=== PATIENT | female | born 1990 | race Caucasian/White ===

== ENCOUNTER 2019-04-29 00:36 | Inpatient (IN) ==
[2019-04-29] MEDS ORDERED: OXYTOCIN 30 UNITS/500 ML BAG IV PRN ×3 (01:33→10:21)
--- NOTE | 2019-04-29 01:41 | History & Physical Report ---
Date of Service April 29, 2019 Assessment & Plan (1) : Admit to L&D. EFM/toco. Labs. IV fluids. I discussed and risks with patient, informed consent obtained. Reviewed risk of uterine rupture (approx 1%) and possible risk of of baby/mom, risk of need for immediate surgery to attempt to repair uterus, risk of hysterectomy. She does not want an epidural. I reviewed with her that having an epidural in place may make it faster to get into OR if we need to perform a STAT , she will consider this. Since rare ctx, will start pitocin to augment labor. Anesthesiologist has been notified of and will stay in-house. History of Present Illness Chief Complaint: rupture of membranes Primary Care Provider: NO PCP 28yo @ 39 03/03 with large gush of clear fluid at 11:30pm 04/28/2019. She was not initially feeling much movement when she called in, and was directed to come straight to the hospital. movement has picked up since arrival. No vaginal bleeding. Occasional contractions. She has h/o primary low transverse for breech, Operative report is available in chart. She has been hoping to during the , and has previously signed consent. Allergies Allergy/AdvReac Type Severity Reaction Status Date / Time No Known Drug Allergies Allergy Verified 04/23/19 11:01 Home Medications Home Medications Medication Instructions Recorded Confirmed Type PNV cmb#95-ferrous fumarate-FA 1 tab PO DAILY 04/29/19 04/29/19 History [] Patient History Medical History Ovarian cyst Varicella Surgical History History of (Resolved) S/P S/P wisdom tooth extraction Family History Mother Hypertension Father Hypertension Family/Other Anemia Aunt Diabetes Multiple gestation Uncle Diabetes Sister Heart murmur Endometriosis Brother Bicuspid aortic valve Family/Other Breast cancer Social History Preferred Language: Bhutanese Beliefs That Will Affect Care: None marital status: marital status details: Arcadio Barrientos (28) [phone] Current Living Situation: Family Current Living Situation Comment: Cat- pt not changing cat litter current occupational status: employed 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 [employer] Other Information That Helps Us Care for You: No Feels Safe at Home: Yes Safety Concerns: Feels Safe At This Time Smoking Status: Never smoker Hx Alcohol Use: No Hx Substance Use: No Review of Systems All systems reviewed & are unremarkable except as noted in HPI & below Physical Exam Physical Exam: SVE 3/80/0 per RN, grossly ruptured with + nitrizine, cephalic Constitutional: WD/WN, vitals as above Respiratory: normal respiratory effort, lungs clear to auscultation no respiratory distress Cardiovascular: Rate/Rhythm: regular rate and regular rhythm Gastrointestinal (Abdomen): Inspection/Auscultation: abdomen normal to inspection Percussion/Palpation: abdomen soft; abdomen nontender Gravid. No s/s chorio or abruption. Skin: no rashes, warm and dry Psychiatric: A+Ox3, euthymic affect Results & Data Vital Signs (Past 12 Hours) Vital Signs Temp Pulse Resp BP 04/29/19 00:56 36.8 C 92 H 18 126/86 04/29/19 00:53 92 H 126/86 Monitoring External Monitor FHT Cat 1, reactive Tocodynamometer Q 7 min Coding Level of Care Code None Diagnoses Z34.90
[2019-04-29 02:07] LABS: Hematocrit (blood only) 37.4 % (37-47); Hemoglobin 12.6 g/dL (12.0-16.0); Mean Corpuscular Hemoglobin 31.4 pg (25-34); Mean Corpuscular Hgb Conc 33.7 g/dL (32-36); Mean Corpuscular Volume 93.3 fL (80-100); Mean Platelet Volume 10.4 fL (7.4-10.4); Platelet Count 202 K/uL (130-400); RDW Coefficient of Variation 12.8 % (11.5-14.5); RDW Standard Deviation 43.3 fL (36.4-46.3); Red Blood Count 4.01 M/uL (4.2-5.4)
[2019-04-29] MEDS ORDERED: OXYTOCIN 30 UNITS/500ML NSS ONE (02:15)
[2019-04-29] MEDS: LACTATED RINGER'S 1,000 ML IV PRN ×2 (02:20→05:40)
[2019-04-29] MEDS ORDERED: fentaNYL citrate 100 MCG/2 ML VIAL ONE (03:48)
[2019-04-29] MEDS ORDERED: fentaNYL 2MCG/ML ROPIV 1.25MG/ML 100 ML BAG EPI ONE (03:48)
[2019-04-29] MEDS ORDERED: BUPIVACAINE 0.25% 30 ML VIAL ONE (03:48)
[2019-04-29] MEDS ORDERED: ePHEDrine sulfate 50 MG/ML AMP ONE (03:48)
[2019-04-29] MEDS ORDERED: fentaNYL 2MCG/ML ROPIV 1.25MG/ML 100 ML BAG EPI PRN (05:11)
[2019-04-29] MEDS ORDERED: ePHEDrine sulfate 50 MG/ML AMP IV PRN (05:11)
[2019-04-29] MEDS ORDERED: NALOXONE HCL 0.4 MG/1 ML VIAL/CARP IV PRN (05:11)
[2019-04-29] MEDS ORDERED: NALOXONE HCL 1 MG in SODIUM CHLORIDE 0.9% 1000ML 1,000 ML IV PRN (05:11)
[2019-04-29] MEDS ORDERED: NALBUPHINE HCL INJ 10 MG/ML AMP IV PRN (05:11)
[2019-04-29] MEDS ORDERED: DiphenhydrAMINE HCL 50 MG/ML VIAL IV PRN (05:11)
--- NOTE | 2019-04-29 05:12 | Anesthesiology Consultation ---
Date of Service April 29, 2019 Assessment & Plan Chart Review Chart Review: Acceptable Risk for Labor Epidural Consults Requested none History Height/Weight Height: 5 ft 5 in Weight: 92.079 kg Allergies Allergy/AdvReac Type Severity Reaction Status Date / Time No Known Drug Allergies Allergy Verified 04/23/19 11:01 Medications Home Medications Medication Instructions Recorded Confirmed Last Taken PNV cmb#95-ferrous fumarate-FA 1 tab PO DAILY 04/29/19 04/29/19 04/28/19 [] Active Medications Generic Name Dose Route Start Last Admin Trade Name Freq PRN Reason Stop Dose Admin Lactated Ringer's 1,000 mls @ 125 mls/hr 04/29/19 01:33 04/29/19 03:43 Lr IV 05/01/19 01:32 999 mls/hr .Q8H PRN Infusion L&D Protocol Protocol Oxytocin 30 units in 500 mls @ 3 mls/hr 04/29/19 01:33 04/29/19 03:00 Pitocin IV 05/01/19 01:32 0.18 units/hr .Q24H PRN 3 mls/hr Labor Induction/Augmentation Titration Protocol 0.18 UNITS/HR Past Medical History Medical History Ovarian cyst Varicella Past Family History Family History Mother Hypertension Father Hypertension Family/Other Anemia Aunt Diabetes Multiple gestation Uncle Diabetes Sister Heart murmur Endometriosis Brother Bicuspid aortic valve Family/Other Breast cancer Past Surgical History Surgical History History of (Resolved) S/P S/P wisdom tooth extraction Social History Smoking Status: Never smoker Hx Alcohol Use: No Hx Substance Use: No Physical Exam Vital Signs Last Vital Signs Temp 36.7 C 04/29/19 03:00 Pulse 81 04/29/19 05:10 Resp 18 04/29/19 03:34 BP 125/68 04/29/19 05:10 Pulse Ox 96 04/29/19 05:09 Testing Laboratory Results 04/29/19 01:56
--- NOTE | 2019-04-29 07:10 | Labor Progress Brief Note ---
Date of Service April 29, 2019 Subjective Comfortable with epidural. FHT Cat 1 [place] Q 3 SVE 690/0 per RN Doing well, anticipate vaginal delivery. Results & Data Vital Signs (Past 12 Hours) Vital Signs Temp Pulse Resp BP Pulse Ox 04/29/19 07:08 80 116/70 04/29/19 07:04 85 98 04/29/19 07:00 36.4 C L 16 04/29/19 06:59 88 98 04/29/19 06:54 71 95 04/29/19 06:52 75 101/56 L 04/29/19 06:49 71 95 04/29/19 06:44 73 96 04/29/19 06:39 71 96 04/29/19 06:37 68 98/54 L 04/29/19 06:34 71 95 04/29/19 06:29 71 96 04/29/19 06:24 73 96 04/29/19 06:22 74 96/55 L 04/29/19 06:21 72 94 04/29/19 06:19 71 96 04/29/19 06:14 74 95 04/29/19 06:09 77 96 04/29/19 06:07 94 H 95/57 L 04/29/19 06:04 71 94 04/29/19 06:02 72 91/51 L 04/29/19 05:59 71 95 04/29/19 05:57 71 96/53 L 04/29/19 05:55 78 94 04/29/19 05:54 71 95 04/29/19 05:52 73 93/50 L 04/29/19 05:50 76 94 04/29/19 05:49 77 94 04/29/19 05:47 69 95/50 L 04/29/19 05:44 76 94 04/29/19 05:42 77 95/53 L 04/29/19 05:39 87 96 04/29/19 05:38 74 94 04/29/19 05:37 76 95/54 L 04/29/19 05:34 73 94 04/29/19 05:32 76 98/56 L 04/29/19 05:30 78 94 04/29/19 05:29 96 H 95/60 L 95 04/29/19 05:24 77 93 04/29/19 05:22 75 113/62 04/29/19 05:21 77 94 04/29/19 05:19 89 96 04/29/19 05:17 86 136/62 04/29/19 05:15 87 94 04/29/19 05:14 90 96 04/29/19 05:12 83 133/64 04/29/19 05:10 81 125/68 04/29/19 05:09 77 96 04/29/19 05:08 77 124/67 04/29/19 05:06 74 124/66 04/29/19 05:05 36.4 C L 76 94 04/29/19 05:04 86 130/69 95 04/29/19 05:02 92 H 136/80 04/29/19 05:00 89 129/74 04/29/19 04:59 95 H 99 04/29/19 04:58 83 137/72 04/29/19 04:54 90 99 04/29/19 04:51 88 92 04/29/19 04:49 81 98 04/29/19 04:44 81 93 04/29/19 04:42 86 92 04/29/19 04:39 86 99 04/29/19 04:34 78 98 04/29/19 04:33 80 92 04/29/19 04:31 76 130/76 04/29/19 04:29 91 H 98 04/29/19 04:25 77 93 04/29/19 04:24 79 95 04/29/19 04:19 84 90 04/29/19 03:34 74 18 137/86 04/29/19 03:00 36.7 C 04/29/19 02:23 82 18 117/72 04/29/19 00:56 36.8 C 92 H 18 126/86 04/29/19 00:53 92 H 126/86 Coding Level of Care Code None
--- NOTE | 2019-04-29 09:42 | Labor Progress Brief Note ---
Date of Service April 29, 2019 Subjective Reason For Note: Routine Evaluation told previously by RN that pt was completely dilated/0 station. she is feeling pressure. Assessment & Plan (1) Desires (vaginal after ) trial: (2) Previous delivery affecting , antepartum: (3) Need for rhogam due to Rh negative mother: pt will begin 2nd stage. fhts categ 1. aware i am taking over care. Physical Exam Constitutional: WD/WN, vitals as above Psychiatric: A+Ox3, euthymic affect Genitourinary: Manual OB Exam: + cervical dilation 10 cm, + cervical effacement 100% and + station + 3 OB Exam Monitor Tracing: + external FHT monitor used (150 mod variability, early decels), + external uterine monitor used (q2-3), + category I and + normal FHT variability Results & Data Vital Signs (Past 12 Hours) Vital Signs Temp Pulse Resp BP Pulse Ox 04/29/19 09:39 125 H 99 04/29/19 09:38 80 124/75 04/29/19 09:37 119 H 92 04/29/19 09:34 95 H 100 04/29/19 09:29 83 100 04/29/19 09:26 90 86 L 04/29/19 09:24 80 98 04/29/19 09:22 81 126/77 04/29/19 09:19 83 99 04/29/19 09:16 80 93 04/29/19 09:14 93 H 98 04/29/19 09:09 79 97 04/29/19 09:08 75 123/73 04/29/19 09:04 84 97 04/29/19 09:00 98.2 F 89 16 92 04/29/19 08:59 86 96 04/29/19 08:54 110 H 97 04/29/19 08:53 74 129/75 04/29/19 08:49 80 98 04/29/19 08:44 79 97 04/29/19 08:39 79 96 04/29/19 08:37 81 126/78 04/29/19 08:36 83 93 04/29/19 08:34 102 H 98 04/29/19 08:29 79 97 04/29/19 08:24 88 98 04/29/19 08:23 92 H 134/80 04/29/19 08:19 81 97 04/29/19 08:14 90 97 04/29/19 08:09 91 H 98 04/29/19 08:07 78 115/67 04/29/19 08:04 90 97 04/29/19 07:59 88 98 04/29/19 07:54 75 97 04/29/19 07:49 86 98 04/29/19 07:44 82 97 04/29/19 07:39 78 100/60 97 04/29/19 07:34 98 H 97 04/29/19 07:29 78 97 04/29/19 07:24 80 97 04/29/19 07:23 77 102/59 L 04/29/19 07:19 83 97 04/29/19 07:14 89 98 04/29/19 07:09 84 98 04/29/19 07:08 80 116/70 04/29/19 07:04 85 98 04/29/19 07:00 97.5 F L 16 04/29/19 06:59 88 98 04/29/19 06:54 71 95 04/29/19 06:52 75 101/56 L 04/29/19 06:49 71 95 04/29/19 06:44 73 96 04/29/19 06:39 71 96 04/29/19 06:37 68 98/54 L 04/29/19 06:34 71 95 04/29/19 06:29 71 96 04/29/19 06:24 73 96 04/29/19 06:22 74 96/55 L 04/29/19 06:21 72 94 04/29/19 06:19 71 96 04/29/19 06:14 74 95 04/29/19 06:09 77 96 04/29/19 06:07 94 H 95/57 L 04/29/19 06:04 71 94 04/29/19 06:02 72 91/51 L 04/29/19 05:59 71 95 04/29/19 05:57 71 96/53 L 04/29/19 05:55 78 94 04/29/19 05:54 71 95 04/29/19 05:52 73 93/50 L 04/29/19 05:50 76 94 04/29/19 05:49 77 94 04/29/19 05:47 69 95/50 L 04/29/19 05:44 76 94 03/04/20 05:42 77 95/53 L 04/29/19 05:39 87 96 04/29/19 05:38 74 94 04/29/19 05:37 76 95/54 L 04/29/19 05:34 73 94 04/29/19 05:32 76 98/56 L 04/29/19 05:30 78 94 04/29/19 05:29 96 H 95/60 L 95 04/29/19 05:24 77 93 04/29/19 05:22 75 113/62 04/29/19 05:21 77 94 04/29/19 05:19 89 96 04/29/19 05:17 86 136/62 04/29/19 05:15 87 94 04/29/19 05:14 90 96 04/29/19 05:12 83 133/64 04/29/19 05:10 81 125/68 04/29/19 05:09 77 96 04/29/19 05:08 77 124/67 04/29/19 05:06 74 124/66 04/29/19 05:05 97.5 F L 76 94 04/29/19 05:04 86 130/69 95 04/29/19 05:02 92 H 136/80 04/29/19 05:00 89 129/74 04/29/19 04:59 95 H 99 04/29/19 04:58 83 137/72 04/29/19 04:54 90 99 04/29/19 04:51 88 92 04/29/19 04:49 81 98 04/29/19 04:44 81 93 04/29/19 04:42 86 92 04/29/19 04:39 86 99 04/29/19 04:34 78 98 04/29/19 04:33 80 92 04/29/19 04:31 76 130/76 04/29/19 04:29 91 H 98 04/29/19 04:25 77 93 04/29/19 04:24 79 95 04/29/19 04:19 84 90 04/29/19 03:34 74 18 137/86 04/29/19 03:00 98.1 F 04/29/19 02:23 82 18 117/72 04/29/19 00:56 98.2 F 92 H 18 126/86 04/29/19 00:53 92 H 126/86 Coding Level of Care Code None Diagnoses Desires (vaginal after ) trial O34.219 Previous delivery affecting , antepartum O34.219 Need for rhogam due to Rh negative mother Z29.13
[2019-04-29] MEDS ORDERED: BENZOCAINE 20% AER SPR 82.5 GM CAN EXT PRN (10:21)
[2019-04-29] MEDS ORDERED: SUPERCREAM 0.870% 15 GM JAR EXT PRN (10:21)
[2019-04-29] MEDS ORDERED: HYDROCORTISONE ACETATE 25 MG SUPP PR PRN (10:21)
[2019-04-29] MEDS ORDERED: bisacodyL 10 MG SUPP PR PRN (10:21)
[2019-04-29] MEDS ORDERED: DIPHTHERIA/TETANUS/PERTUSSIS 0.5 ML SYR/VIAL IM ONE (10:21)
[2019-04-29] MEDS ORDERED: ACETAMINOPHEN 325 MG TAB PO PRN (10:21)
--- NOTE | 2019-04-29 10:25 | Delivery Summary ---
Vaginal Delivery Summary Date of Service April 29, 2019 The patient dilated to complete and pushed to deliver a viable female infant Apgars 9 and 9 via over intact perineum. Mouth and nose bulb suctioned at perineum. Shoulders and body delivered with ease. Infant was vigorous and crying at . Cord clamped at 40 seconds of life and infant to maternal abdomen where the cord was then doubly clamped and cut. Initially placenta not ready to be delivered and vagina begun to be inspected for tears. Right sulcal tear noted extending to right labia. Speculum disarticulated and used as retractor. Sudden increase in bleeding noted with concern about placenta and uterine atony. Placenta then attempted to be delivered, cord tore and exam revealed portion of placenta through cervix. Grasped and delivered with traction, intact. Hemostasis not achieved with dilute pitocin and uterine massage. Cervix intact but clearly bleeding more from sulcal tear for which repair was resumed with 3-0 vicryl in usual fashion and hemostasis became more adequate. Bilateral labial lacerations reapproximated with 3-0 and 4-0 vicryl. EBL 500 cc. Mother and baby stable recovery.
[2019-04-29] MEDS ORDERED: OXYTOCIN 20 UNITS in LACTATED RINGER'S 1,000 ML IV SCH (10:45)
--- NOTE | 2019-04-29 11:10 | Anesthesia Procedure Note ---
Date of Service April 29, 2019 Anesthesia Post Epidural Note Vital Signs Vital Signs: Temp Pulse Resp BP Pulse Ox 36.8 C 122 H 20 105/85 97 04/29/19 09:00 04/29/19 11:08 04/29/19 10:22 04/29/19 11:08 04/29/19 09:44 Notes Mental Status: alert / awake / arousable and participated in evaluation Nausea / Vomiting: adequately controlled Pain: adequately controlled Airway Patency, RR, SpO2: stable & adequate BP & HR: stable & adequate Hydration State: stable & adequate Neuraxial Anesthesia: was administered and sensory block is resolving Anesthetic Complications: no major complications apparent and Pt Satisfied with anesthetic care Epidural: Removed without complications and With tip intact Notes: Epidural site clean, dry and intact. No signs of edema, erythema or bruising at insertion site. Pt instructed to request anesthesia if she has residual lower extremity numbness or if she develops lower extremity pain or weakness, back pain or headache.
[2019-04-29] MEDS: IBUPROFEN 600 MG TAB PO PRN ×2 (13:54→17:14)
[2019-04-29] MEDS: DOCUSATE SODIUM 100 MG CAP PO SCH (20:19)
[2019-04-30] MEDS: IBUPROFEN 600 MG TAB PO PRN ×3 (00:19→08:31)
[2019-04-30 06:18] LABS: Hematocrit (blood only) 26.7 % (37-47)
--- NOTE | 2019-04-30 06:57 | Obstetrical Progress Note ---
Date of Service <Chandra Foote MD - Last Filed: 04/30/19 07:26> April 30, 2019 Assessment & Plan <Chandra Foote MD - Last Filed: 04/30/19 07:26> (1) Desires (vaginal after ) trial: PPD#1 - continue routine care - encourage ambulation and oral intake - patient is Rh negative - after discharge will have follow-up in 6 weeks Subjective <Chandra Foote MD - Last Filed: 04/30/19 07:26> Ms. Barrientos is a 28 y/o female ; PPD #1 following vaginal after section; doing well this morning; having minimal abdominal cramping/p ain; voiding well without pain or tenderness using spray bottle; tolerating meals overnight; and able to ambulate some; some persistent spotting with intermittent improvement this morning. Review of Systems Constitutional: denies fever; chills; sweats; headache Respiratory: denies shortness of breath, difficulty breathing Cardiac: denies chest pain; palpitations; chest pressure Breast: denies breast pain : denies dysuria Physical Exam <Chandra Foote MD - Last Filed: 04/30/19 07:26> General: alert; oriented; no acute distress Cardiac: RRR; no m/g/r Respiratory: CTAB a/p; no wheezes/rales/rhonchi; no increased work of breathing; symmetrical chest rise; no respiratory distress Abdomen: soft; NT/ND; bowel sounds positive Uterus: uterine fundus firm; palpable 2cm below umbilicus Lower extrem: no lower extremity edema or swelling; no deep calf pain; Daniele's sign negative b/l Results & Data <Chandra Foote MD - Last Filed: 04/30/19 07:26> Vital Signs (Past 12 Hours) Vital Signs Temp Pulse Resp BP Pulse Ox 04/30/19 03:05 36.6 C 77 16 108/68 04/29/19 23:00 36.7 C 85 16 111/70 04/29/19 19:45 37.2 C 120 H 16 126/79 98 Laboratory Results 04/30/19 Range/Units 05:58 Hgb 9.0 L D (12.0-16.0) g/dL Hct 26.7 L (37-47) % Medications Administered Current Inpatient Medications Acetaminophen (Tylenol) 650 mg PO Q6H PRN PRN Reason: Pain/ASCENCIO/Fever Stop: 05/29/19 10:20 Benzocaine (Dermoplast Pain Relieving [place]) 1 appln EXT PRN PRN PRN Reason: Perineal Discomfort Stop: 05/29/19 10:20 Bisacodyl (Dulcolax) 5 mg PO 1999 [facility] Stop: 04/30/19 20:01 Bisacodyl (Dulcolax) 10 mg MO DAILY PRN PRN Reason: No BM on 2nd post- day Stop: 05/29/19 10:20 Cocaine HCl (Supercream 0.870%) 1 gm EXT BID PRN PRN Reason: Hemorrhoidal Inflammation Stop: 05/13/19 10:20 Docusate Sodium (Colace) 100 mg PO DAILY@08,21 [facility] Stop: 05/29/19 20:59 Last Admin: 04/29/19 20:19 Dose: 100 mg Documented by: Hydrocortisone (Anusol Hc) 25 mg MO BID PRN PRN Reason: Hemorrhoidal Inflammation Stop: 05/29/19 10:20 Oxytocin (Pitocin) 30 units in 500 mls @ 333.333 mls/hr IV .Q1H30M PRN; Protocol PRN Reason: Bleeding Control Stop: 05/29/19 10:20 Oxytocin 20 units/ Lactated (Ringer's) 1,002 mls @ 125 mls/hr IV .Q8H1M [facility] Stop: 05/29/19 10:44 Last Admin: 04/29/19 10:55 Dose: 125 mls/hr Documented by: Ibuprofen (Motrin) 600 mg PO Q4H PRN PRN Reason: Pain/ASCENCIO/Cramping/Fever Stop: 05/29/19 10:20 Last Admin: 04/30/19 04:55 Dose: 600 mg Documented by: Prenat Multivit/[place]/Iron/Folic Ac ( Vitamin) 1 tab PO DAILY@08 [facility] Stop: 05/30/19 07:59 <June Cortez MD, FACOG - Last Filed: 04/30/19 08:05> Co-Signing Physician Notes Resident Physician Supervision Note: I was present with Dr. Foote during the history and exam. I discussed the case with the resident and agree with the findings and plan as documented in the note. Any exceptions or clarifications are listed here: doing well, really pleased with . breast feeding, ambul, voiding and eating without problem. ff 2 down nt, nt calves. ppd#1 desires d/c home, instructions reviewed. f/u 6 wks pp check. Documented By: June Cortez MD, FACOG Resident Activity Tracking <Chandra Foote MD - Last Filed: 04/30/19 07:26> Resident Involvement: Resident Care Provided Care Provided: OB Delivery
[2019-04-30] MEDS ORDERED: PRENATAL VITAMIN 1 TAB PO SCH (08:00)
[2019-04-30] MEDS: DOCUSATE SODIUM 100 MG CAP PO SCH (08:31)
[2019-04-30] MEDS ORDERED: bisacodyL 5 MG TABEC PO SCH (20:00)
== END 2019-04-30 12:56 | disposition home or self-care (01) | DRG 807 ==
LOC: OPB 00:36 → 4S1 00:39 → 4S2 12:43